=== PATIENT | female | born 1955 | race Caucasian/White ===

== ENCOUNTER 2020-06-04 19:01 | Emergency (ER) | payer OTHER ==
[~2020-06-04] VITALS: Ht 157.5 cm; Wt 52.2 kg
[~2020-06-04 19:01] MED LIST: Toprol Xl25 MG PO
[2020-06-05] MEDS ORDERED: Norco 5-325 Ta1 EACH PO ×2 (20:53→20:58)
== END 2020-06-04 20:58 | disposition home or self-care (01) ==
LOC: ER 19:01
DX: S01.81XA Laceration without foreign body of other part of head, initial encounter (principal); Z87.891 Personal history of nicotine dependence; W22.8XXA Striking against or struck by other objects, initial encounter
CPT/HCPCS: 12054; 99282-25

== ENCOUNTER 2020-06-12 01:51 | Emergency (ER) | payer SELFPAY ==
[~2020-06-12] VITALS: Ht 157.5 cm; Wt 52.2 kg
[~2020-06-12 01:51] MED LIST changes: +Norco 5-325 Ta1 EACH PO
[2020-06-12 03:43] LABS: BASOPHILS ABSOLUTE AUTO 0.01 K/mm3 (0.00-0.23); BASOPHILS PERCENT AUTO 0 % (0-2); EOSINOPHILS PERCENT AUTO 0 % (0-6); Hematocrit 29.4 % (33.0-51.0); Hemoglobin 9.6 g/dL (11.5-16.0); IMMATURE GRAN ABSOLUTE AUTO 0.02 K/mm3 (0.00-0.10); IMMATURE GRAN PERCENT AUTO 0 % (0-1); LYMPHOCYTES ABSOLUTE AUTO 0.92 K/mm3 (0.84-5.20); LYMPHOCYTES PERCENT AUTO 13 % (21-46); MONOCYTES ABSOLUTE AUTO 0.48 K/mm3 (0.16-1.47); MONOCYTES PERCENT AUTO 7 % (4-13); Mean Corpuscular HGB 29.8 pg (26.0-34.0); Mean Corpuscular HGB Conc 32.7 g/dL (31.5-36.5); Mean Corpuscular Volume 91 fL (80-100); Mean Platelet Volume 8.2 fL (9.1-12.4); NEUTROPHILS PERCENT AUTO 80 % (41-73); Platelet Count 191 K/mm3 (150-400); RDW Coefficient Variation 12.6 % (11.7-14.2); RDW Standard Deviation 42.3 fL (35.1-46.3); Red Blood Cell Count 3.22 M/mm3 (3.80-5.20); White Blood Cell Count 7.13 K/mm3 (4.00-11.30)
[2020-06-12 04:01] LABS: Alanine Aminotransfer (ALT/SGP 61 U/L (12-78); Albumin, Blood 2.6 g/dL (3.4-5.0); Albumin/Globulin Ratio 0.7 (0.8-1.8); Alk Phos 70 U/L (50-136); Anion Gap 8 mmol/L (6-16); Aspartate Aminotrans (AST/SGOT 36 U/L (12-37); Bilirubin, Total 0.5 mg/dL (0.1-1.0); Blood Urea Nitrogen 6 mg/dL (8-24); Bun/Creatinine Ratio 10.1 (12.0-20.0); CO2, Blood 25 mmol/L (21-32); Calcium, Blood 7.7 mg/dL (8.5-10.1); Chloride, Blood 98 mmol/L (98-108); Globulin, Blood 3.5 g/dL (2.2-4.0); Glomerular Filtration Rate >60 (60-); Glucose, Blood 123 mg/dL (70-99); Potassium, Blood 3.6 mmol/L (3.5-5.5); Sodium, Blood 131 mmol/L (136-145); Total Protein, Blood 6.1 g/dL (6.4-8.2)
[2020-06-12] MEDS ORDERED: ONDA4ODT MM (04:50)
== END 2020-06-12 05:00 | disposition home or self-care (01) ==
LOC: ER 01:51
PROVIDERS: Emergency Medicine
DX: R50.9 Fever, unspecified (principal); R04.2 Hemoptysis; R06.02 Shortness of breath; S01.81XD Laceration without foreign body of other part of head, subsequent encounter; Z86.16 Personal history of COVID-19; Z87.891 Personal history of nicotine dependence; X58.XXXD Exposure to other specified factors, subsequent encounter
CPT/HCPCS: 80053; 85025; 94640; 96361; 96374; 99284-25; A9270; J2405; J7030

== ENCOUNTER 2020-06-14 17:59 | Emergency (ER) | payer SELFPAY ==
[~2020-06-14] VITALS: Ht 157.5 cm; Wt 54.4 kg
[~2020-06-14 17:59] MED LIST changes: +ONDA4ODT MM
[2020-06-14] MEDS ORDERED: DEXA2 PO (20:15)
== END 2020-06-14 20:26 | disposition home or self-care (01) ==
LOC: ER 17:59
DX: U07.1 COVID-19 (principal); R06.02 Shortness of breath; Z87.891 Personal history of nicotine dependence
CPT/HCPCS: 71045; 94640; 99285-25; A9270; J1100

== ENCOUNTER 2020-06-17 12:54 | Emergency (ER) | payer SELFPAY ==
[~2020-06-17] VITALS: Ht 162.6 cm; Wt 52.2 kg
[~2020-06-17 12:54] MED LIST changes: +DEXA2 PO
[2020-06-17] MEDS ORDERED: ALBU90OI INH (13:56)
[2020-06-17] MEDS ORDERED: Pulmicort Flex90 MCG PO (13:56)
== END 2020-06-17 15:05 | disposition home or self-care (01) ==
LOC: ER 12:54
DX: U07.1 COVID-19 (principal); J12.82 Pneumonia due to coronavirus disease 2019; R09.02 Hypoxemia; Z79.52 Long term (current) use of systemic steroids; Z79.899 Other long term (current) drug therapy; Z87.891 Personal history of nicotine dependence
CPT/HCPCS: 36415; 93005; 93010; 94640; 99285-25; A9270

== ENCOUNTER → 2020-11-24 | Outpatient (CLI) | payer MEDICARE, OTHER ==
[~2020-11-24] MED LIST changes: +ALBU90OI INH; +Pulmicort Flex90 MCG PO
== END | disposition home or self-care (01) ==
LOC: LAB SHORT 07:38 → LAB 07:38
DX: D48.5 Neoplasm of uncertain behavior of skin (principal)
CPT/HCPCS: 88305